=== PATIENT | female | born 1980 | race Two or more races ===

== ENCOUNTER 2017-12-12 17:51 | Emergency (ER) | payer OTHER ==
[~2017-12-12] VITALS: Ht 157.5 cm; Wt 86.2 kg
[2017-12-12 17:51] VITALS: BP 138/79
[2017-12-12] MEDS ORDERED: FAMOTIDINE (20 MG) 20 MG TABLET ONE (18:15)
[2017-12-12] MEDS ORDERED: diphenhydrAMINE HCL 50 MG CAPSULE ONE (18:15)
[2017-12-12] MEDS ORDERED: predniSONE 20 MG TABLET ONE (18:15)
[2017-12-12] MEDS ORDERED: predniSONE 10 MG TABLET PO ONE (18:30)
[2017-12-12] MEDS ORDERED: diphenhydrAMINE HCL 50 MG CAPSULE PO ONE (18:30)
[2017-12-12] MEDS ORDERED: FAMOTIDINE (20 MG) 20 MG TABLET PO ONE (18:30)
== END 2017-12-12 18:42 | disposition home or self-care (01) ==
LOC: ER 17:59
DX: L50.9 Urticaria, unspecified (principal)
CPT/HCPCS: 99284; A4606; J7512; Q0163; Z7610

== ENCOUNTER 2019-06-17 13:41 | Emergency (ER) | payer OTHER ==
[~2019-06-17] VITALS: Ht 162.6 cm; Wt 81.2 kg
--- NOTE | 2019-06-17 13:42 | NUR ---
PT BIB C/O CHEST PAIN STARTED LAST NIGHT SHARP NON RADIATING, PT IS AAOX4, NOT IN RESPIRATORY DISTRESS, HOOKED TO [employer], KEPT RESTED AND COMFORTABLE, WILL CONTINUE TO MONITOR.
--- NOTE | 2019-06-17 13:50 | NUR ---
SEEN AND EXAMINED BY .
--- NOTE | 2019-06-17 13:55 | NUR ---
URINE SPECIMEN COLLECTED AND SENT TO LAB.
--- NOTE | 2019-06-17 14:03 | NUR ---
RIVETER PNEUMATIC AT BEDSIDE FOR XRAY.
[2019-06-17 14:16] LABS: BASOPHILS # (AUTO) 0.1 /CMM (0.0-0.2); BASOPHILS % (AUTO) 0.7 % (0.0-2.0); EOSINOPHILS % (AUTO) 1.1 % (0.0-6.0); HEMATOCRIT 38 % (33-45); HEMOGLOBIN 12.2 g/dL (11.5-14.8); LYMPHOCYTES # (AUTO) 2.6 /CMM (0.8-4.8); LYMPHOCYTES % (AUTO) 29.4 % (20.0-44.0); MEAN CORPUSCULAR HGB CONC 33 g/dl (31.0-36.0); MEAN CORPUSCULAR VOLUME 80 fL (82-100); MONOCYTES # (AUTO) 0.5 /CMM (0.1-1.30); MONOCYTES % (AUTO) 5.2 % (2.0-12.0); NEUTROPHILS # (AUTO) 5.7 /CMM (1.8-8.9); NEUTROPHILS % (AUTO) 63.6 % (43.0-81.0); PLATELET COUNT (AUTO) 288 /CMM (150-450); RED BLOOD CELL COUNT(AUTO) 4.69 MIL/uL (4.0-5.2); WHITE BLOOD COUNT (AUTO) 8.9 K/uL (4.3-11.0)
[2019-06-17 14:25] LABS: CALCIUM, SERUM 8.7 mg/dL (8.5-10.1); CARBON DIOXIDE 26 mmol/L (21-32); CHLORIDE 104 mmol/L (98-107); CREATININE 0.6 mg/dL (0.6-1.3); GLUCOSE 86 mg/dL (74-106); POTASSIUM 3.9 mmol/L (3.5-5.1); SODIUM SERUM 138 mmol/L (136-145); UREA NITROGEN, BLOOD 14 mg/dL (7-18)
[2019-06-17 14:38] LABS: ALANINE AMINOTRANSFERASE 24 U/L (12-78); ALKALINE PHOSPHATASE 61 U/L (46-116); ASPARTATE AMINOTRANSFERASE 22 U/L (15-37); B-TYPE NATRIURETIC PEPTIDE 44 PG/ML (0-125); BILIRUBIN,TOTAL 0.2 mg/dL (0.2-1.0); TOTAL PROTEIN, SERUM 7.6 g/dL (6.4-8.2)
--- NOTE | 2019-06-17 14:49 | NUR ---
IV removed. Catheter intact and site benign. Pressure and 4x4 applied to site. No bleeding noted. Patient discharged to home in stable condition. Written and verbal after care instructions given. Patient verbalizes understanding of instruction.
[2019-06-17 14:50] VITALS: BP 131/77
== END 2019-06-17 14:50 | disposition home or self-care (01) ==
LOC: ER 13:42
DX: R07.89 Other chest pain (principal); E78.00 Pure hypercholesterolemia, unspecified
CPT/HCPCS: 36415; 71045-TC; 80048-TC; 80076-TC; 83880; 84484-TC; 84703-TC; 85025-TC

== ENCOUNTER 2022-09-11 20:17 | Emergency (ER) | payer OTHER ==
[~2022-09-11] VITALS: Ht 162.6 cm; Wt 80.7 kg
[2022-09-11 21:02] VITALS: BP 147/93
--- NOTE | 2022-09-11 21:02 | NUR ---
JOSIAS C/O R BIG TOE PAIN S/P "TV MOUNT FELL ON FOOT AT 1730" TOOK [employer] W/ LITTLE RELIEF. PAIN 01/18. SWELLING NOTED
[2022-09-11] MEDS ORDERED: IBUPROFEN 600 MG TABLET ONE (21:27)
[2022-09-11] MEDS ORDERED: IBUPROFEN 600 MG TABLET PO ONE (21:30)
[2022-09-11] MEDS ORDERED: IBUP-1953 PO (21:46)
--- NOTE | 2022-09-11 22:09 | NUR ---
BOOT APPLIED TO R FOOT
--- NOTE | 2022-09-11 23:10 | NUR ---
DPatient discharged to home in stable condition. Written and verbal after care instructions given. Patient verbalizes understanding of instruction.
== END 2022-09-11 23:12 | disposition home or self-care (01) ==
LOC: ER 20:21
DX: S92.424A Nondisplaced fracture of distal phalanx of right great toe, initial encounter for closed fracture (principal); W20.8XXA Other cause of strike by thrown, projected or falling object, initial encounter; Y93.89 Activity, other specified; Y92.89 Other specified places as the place of occurrence of the external cause; Y99.8 Other external cause status
CPT/HCPCS: 73660-TC